=== PATIENT | male | born 1955 | race Caucasian/White ===

== ENCOUNTER → 2019-10-13 | Outpatient (CLI) | payer OTHER, MEDICARE ==
[~2019-10-13] MED LIST: HYDROCODON-ACE1 EAC7 PO; NABUMETONE 750750 M1 PO
== END ==
LOC: SJCVCIMAG 11:48 → SJCVC 15:09
DX: I35.1 Nonrheumatic aortic (valve) insufficiency (principal); I10 Essential (primary) hypertension; R07.9 Chest pain, unspecified; Z82.49 Family history of ischemic heart disease and other diseases of the circulatory system; Z72.89 Other problems related to lifestyle

== ENCOUNTER → 2019-10-14 | Outpatient (CLI) | payer OTHER | LOC: CAT 08:51 | DX: Z13.6 Encounter for screening for cardiovascular disorders (principal); E78.00 Pure hypercholesterolemia, unspecified; I25.10 Atherosclerotic heart disease of native coronary artery without angina pectoris ==

== ENCOUNTER → 2020-07-07 | Outpatient (CLI) | payer OTHER, MEDICARE | LOC: SJCVC 10:06 | PROVIDERS: ATTEND Internal Medicine Cardiovascular Disease | DX: R94.31 Abnormal electrocardiogram [ECG] [EKG] (principal); I10 Essential (primary) hypertension; Z82.49 Family history of ischemic heart disease and other diseases of the circulatory system ==

== ENCOUNTER → 2021-07-07 | Outpatient (CLI) | payer OTHER | LOC: SJCVCIMAG 08:11 | PROVIDERS: ATTEND Internal Medicine Cardiovascular Disease | DX: I45.19 Other right bundle-branch block (principal); R94.31 Abnormal electrocardiogram [ECG] [EKG]; I10 Essential (primary) hypertension; R53.83 Other fatigue ==